=== PATIENT | female | born 1950 | race Caucasian/White ===

== ENCOUNTER 2017-06-25 11:12 | Emergency (ER) | payer BC ==
[2017-06-25 11:16] VITALS: BP 120/74; PULSE 78; TEMP 98.7; BMI 25.3
[2017-06-25] MEDS ORDERED: NAPROXEN 500 MG TABLET (FP) PO ONE (11:49)
[2017-06-25] MEDS ORDERED: diazePAM 5 MG TABLET PO ONE (11:49)
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
[2017-06-25 12:05] LABS: URINE APPEARANCE CLEAR; URINE BILIRUBIN NEGATIVE (NEGATIVE); URINE BLOOD 1+ (NEGATIVE); URINE COLOR STRAW; URINE GLUCOSE (UA) NEGATIVE (NEGATIVE); URINE KETONE NEGATIVE (NEGATIVE); URINE NITRITE NEGATIVE (NEGATIVE); URINE PROTEIN NEGATIVE (NEGATIVE); URINE UROBILINOGEN NEGATIVE mg/dL (0.2-1.0)
[2017-06-25] MEDS ORDERED: NAPROXEN 500 MG TABLET (FP) ONE (12:07)
[2017-06-25 13:51] LABS: URINE WBC <1 /hpf (3-5)
[2017-06-25 18:19] LABS: URINE LEUK ESTERASE Negative (NEGATIVE)
== END 2017-06-25 12:54 | disposition home or self-care (01) ==
LOC: JERFT 11:12
DX: S39.82XA Other specified injuries of lower back, initial encounter (principal); V78.1XXA Passenger on bus injured in noncollision transport accident in nontraffic accident, initial encounter; Y92.414 Local residential or business street as the place of occurrence of the external cause; Y99.0 Civilian activity done for income or pay; Y93.89 Activity, other specified; I10 Essential (primary) hypertension; E11.9 Type 2 diabetes mellitus without complications; M19.90 Unspecified osteoarthritis, unspecified site
CPT/HCPCS: 81003; 81015; 99281-25